=== PATIENT | female | born 1955 | race Caucasian/White ===

== ENCOUNTER 2016-07-26 10:52 | Emergency (ER) | payer BC ==
[~2016-07-26] VITALS: Wt 65.0 kg
[~2016-07-26 10:52] MED LIST: CALC1TAB80 PO; CHOL2000 PO; CIPR500T4 PO; METF500T4 PO; OXYC-281 PO; PHEN-538 PO
--- NOTE | 2016-07-26 14:31 | RADRPT ---
PROCEDURE: XR Left Shoulder. CLINICAL INDICATION: Left shoulder pain. TECHNIQUE: Two views. Frontal internal and scapular Y-view. COMPARISON: No prior study is available for comparison. FINDINGS: There is no fracture or dislocation. The soft tissues are normal. Articular surfaces are intact. There is no lytic or blastic lesion. There is no radiopaque foreign body. IMPRESSION: 1. Normal images of the left shoulder. RPTAT: QQ .Nahid Tubbs MD, MD Date Time Electronically viewed and signed by .Nahid Tubbs MD, on 07/26/2016 14:31 .R/
--- NOTE | 2016-07-26 14:33 | RADRPT ---
PROCEDURE: Left wrist radiographs. CLINICAL INDICATION: Trauma. Left wrist pain. TECHNIQUE: Four views. Frontal, lateral, and obliques. COMPARISON: No prior studies are available for comparison. FINDINGS: There is an acute transverse fracture through the distal metaphysis of the radius with a vertical fr acture also extending to the distal articular surface. There is approximately 2 mm step off at the articular surface. There is also an acute avulsion fracture of the ulnar styloid. There is no othe r fracture and there is no dislocation. There is overlying soft tissue swelling. The articular surfaces are otherwise intact. There are degenerative changes of the first carpal met acarpal joint with joint space narrowing, osteophytes, and subarticular sclerosis. There is no lytic or blastic lesion. There is no radiopaque foreign body. IMPRESSION: 1. Acute intra-articular fractures of the distal radius and ulna. 2. Degenerative change of the first carpal metacarpal joint. RPTAT: QQ .Nahid Tubbs MD, MD Date Time Electronically viewed and signed by .Nahid Tubbs MD, on 07/26/2016 14:33 .R/
--- NOTE | 2016-07-26 14:34 | RADRPT ---
PROCEDURE: XR left elbow. CLINICAL INDICATION: Left elbow pain. TECHNIQUE: 3 views. Frontal, lateral, and oblique. COMPARISON: No prior study is available for comparison. FINDINGS: There is no fracture or dislocation. The soft tissues are normal. Articular surfaces are intact. There is no lytic or blastic lesion. There is no radiopaque foreign body. IMPRESSION: 1. Unremarkable images of the left elbow. RPTAT: QQ .Nahid Tubbs MD, MD Date Time Electronically viewed and signed by .Nahid Tubbs MD, on 07/26/2016 14:34 .R/
--- NOTE | 2016-07-26 14:36 | RADRPT ---
PROCEDURE: XR Left Hand. CLINICAL INDICATION: Trauma due to a fall. Left hand pain. TECHNIQUE: Three views. Frontal lateral and oblique images of the left hand were obtained. COMPARISON: No prior studies are available for comparison. FINDINGS: There is an acute transverse fracture through the distal metaphysis of the radius with a vertical fr acture also extending to the distal articular surface. There is approximately 2 mm step off at the a rticular surface. There is also an acute avulsion fracture of the ulnar styloid. There is no other f racture and there is no dislocation. There is overlying soft tissue swelling. The articular surfaces are otherwise intact. There are degenerative changes of the first carpal meta carpal joint with joint space narrowing, osteophytes, and subarticular sclerosis. There is no lytic or blastic lesion. There is no radiopaque foreign body. IMPRESSION: 1. Acute intra-articular fractures of the distal radius and ulna. 2. Degenerative change of the first carpal metacarpal joint. 3. Otherwise unremarkable images of the left hand. RPTAT: QQ .Nahid Tubbs MD, Date Time Electronically viewed and signed by .Nahid Tubbs MD, on 07/26/2016 14:36 .R/
[2016-07-26] MEDS ORDERED: ULT50 PO (15:23)
[2016-07-26 15:37] VITALS: BP 132/78; PULSE 86; RESP 16; TEMP 98
--- NOTE | 2016-07-26 18:51 | ERD ---
ER Documentation Chief Complaint Date/Time DATE: 07/26/16 TIME: 18:47 Chief Complaint left arm and wrist pain from a fall. no obvious deformity noted HPI 61-year-old right-handed female with with a past medical history of diabetes presents to the ED complaining of a mechanical fall that occurred earlier today. States that her shoes were wet and she accidentally slipped and fell in the kitchen floor. States that she landed on her left arm. Reports that she has left shoulder, left wrist pain after the fall. Patient is unable to describe the pain. Denies any fever, chills, head or neck injuries. Denies any loss of consciousness. Denies any abdominal pain, chest pain, shortness of breath. ROS All systems reviewed and are negative except as per history of present illness. Medications Home Meds Active Scripts Tramadol HCl (Tramadol HCl) 50 Mg Tablet, 50 MG PO Q4 Y for PAIN, #[address] or operate heavy machinery while taking this medication Prov:JOSE PATEL PA-C 07/26/16 Phenazopyridine Hcl* (Pyridium*) 200 Mg Tab, 200 MG PO TID, #6 TAB Prov:TALIA PENALOZA MD 12/27/15 Phenazopyridine Hcl* (Pyridium*) 200 Mg Tab, 200 MG PO TID Y for URINARY PAIN, # 6 TAB Prov:TALIA PENALOZA MD 12/27/15 Ciprofloxacin Hcl* (Ciprofloxacin Hcl*) 500 Mg Tablet, 500 MG PO BID for 10 Days , TAB Prov:TALIA PENALOZA MD 12/27/15 Reported Medications Oxycodone Hcl-Acetaminophen* (Percocet*) 5-325 Mg Tablet, 1 TAB PO Q6 Y for SEVERE PAIN LEVEL 7-10, TAB 12/27/15 Calcium Carbonate/Vitamin D3 (Oysco 500+D Tablet) 1 Tab Tablet, 1 TAB PO BID, TAB 12/27/15 Metformin* (Glucophage*) 500 Mg Tab, 500 MG PO BID, #30 TAB 12/27/15 Cholecalciferol* (Vitamin D3*) 2,000 Unit Cap, 2000 UNIT PO DAILY, CAP 12/22/15 Allergies Allergies: Coded Allergies: NICOLAS Inhibitors (Verified Adverse Reaction, Unknown, 12/22/15) INTOLERANCE meloxicam (Verified Adverse Reaction, Unknown, 12/22/15) INTOLERANCE PMhx/Soc History of Surgery: Yes (KIDNEY STONES REMOVED) Anesthesia Reaction: No Hx Neurological Disorder: No Hx Respiratory Disorders: No Hx Cardiac Disorders: Yes (HYPERLIPIDEMIA) Hx Psychiatric Problems: No Hx Miscellaneous Medical Probl: Yes (DM) Hx Alcohol Use: No Hx Substance Use: No Hx Tobacco Use: No Smoking Status: Never smoker Physical Exam Vitals Vital Signs Date Time Temp Pulse Resp B/P Pulse Ox O2 Delivery O2 Flow Rate FiO2 07/26/16 15:37 98.0 86 16 132/78 100 Room Air 07/26/16 10:59 98.0 100 20 140/73 100 Physical Exam Const: Vuk-jim-pyssjgisr, well-nourished. In no acute distress. Head: Atraumatic, normocephalic Eyes: Normal Conjunctiva without injection ENT: Normal external ear, nose and mouth. Neck: Full range of motion. No meningismus. Resp: Clear to auscultation bilaterally. No wheezing, rhonchi, rales, or crackles. No accessory muscle use. No retractions. Cardio: Regular rate and rhythm, no murmurs Skin: No petechiae or rashes Back: No midline tenderness. No CVA tenderness. Ext: No cyanosis, or edema. Tenderness to palpation of the left distal radius and left distal ulna. Limited range of motion of the left wrist, elbow and shoulder due to pain. No snuffbox tenderness. Otherwise patient has full range of motion of the upper extremities. Pain with movements of her left shoulder. Cap refill less than 2 seconds. Distal pulses intact bilaterally. Neur: Awake and alert. Normal gait and coordination. Muscle strength 5/5. Sensation intact bilaterally. Psych: Normal Mood and Affect Procedures/MDM This is a 61-year-old female with a past medical history of diabetes that presents to the ED complaining of a mechanical fall due to her what she was in the kitchen floor. Patient is afebrile and nontoxic-appearing. Patient has normal vital signs. A left shoulder and left wrist x-ray was ordered to further evaluate patient. PROCEDURE: XR left elbow. CLINICAL INDICATION: Left elbow pain. TECHNIQUE: 3 views. Frontal, lateral, and oblique. COMPARISON: No prior study is available for comparison. FINDINGS: There is no fracture or dislocation. The soft tissues are normal. Articular surfaces are intact. There is no lytic or blastic lesion. There is no radiopaque foreign body. IMPRESSION: 1. Unremarkable images of the left elbow. PROCEDURE: XR Left Hand. CLINICAL INDICATION: Trauma due to a fall. Left hand pain. TECHNIQUE: Three views. Frontal lateral and oblique images of the left hand were obtained. COMPARISON: No prior studies are available for comparison. FINDINGS: There is an acute transverse fracture through the distal metaphysis of the radius with a vertical fracture also extending to the distal articular surface. There is approximately 2 mm step off at the articular surface. There is also an acute avulsion fracture of the ulnar styloid. There is no other fracture and there is no dislocation. There is overlying soft tissue swelling. The articular surfaces are otherwise intact. There are degenerative changes of the first carpal metacarpal joint with joint space narrowing, osteophytes, and subarticular sclerosis. There is no lytic or blastic lesion. There is no radiopaque foreign body. IMPRESSION: 1. Acute intra-articular fractures of the distal radius and ulna. 2. Degenerative change of the first carpal metacarpal joint. 3. Otherwise unremarkable images of the left hand. PROCEDURE: XR Left Shoulder. CLINICAL INDICATION: Left shoulder pain. TECHNIQUE: Two views. Frontal internal and scapular Y-view. COMPARISON: No prior study is available for comparison. FINDINGS: There is no fracture or dislocation. The soft tissues are normal. Articular surfaces are intact. There is no lytic or blastic lesion. There is no radiopaque foreign body. IMPRESSION: 1. Normal images of the left shoulder. PROCEDURE: Left wrist radiographs. CLINICAL INDICATION: Trauma. Left wrist pain. TECHNIQUE: Four views. Frontal, lateral, and obliques. COMPARISON: No prior studies are available for comparison. FINDINGS: There is an acute transverse fracture through the distal metaphysis of the radius with a vertical fracture also extending to the distal articular surface. There is approximately 2 mm step off at the articular surface. There is also an acute avulsion fracture of the ulnar styloid. There is no other fracture and there is no dislocation. There is overlying soft tissue swelling. The articular surfaces are otherwise intact. There are degenerative changes of the first carpal metacarpal joint with joint space narrowing, osteophytes, and subarticular sclerosis. There is no lytic or blastic lesion. There is no radiopaque foreign body. IMPRESSION: 1. Acute intra-articular fractures of the distal radius and ulna. 2. Degenerative change of the first carpal metacarpal joint. Patient is placed in a volar splint. Splint Assessment: Neurovascularly intact pre and post splint placement with good fit. Patient sustained an acute intra-articular fracture of the distal radius and ulna. Patient's extremity symptoms have stabilized while they have been evaluated in the department and are appropriate for outpatient follow up. No evidence of dislocations, compartment syndrome, neurologic injury, vascular injury, open joint, open fracture, tendon laceration, septic arthritis, osteomyelitis, DVT, foreign body, or other emergent conditions. Discharge medications: Tramadol Follow up with orthopedic physician in 1-2 days. Instructed patient to return to the ED sooner for any worsening symptoms. Patient's questions were answered. Patient understood and agreed with discharge plan. Patient discharged stable. Departure Diagnosis: Primary Impression: Wrist fracture Condition: Stable Patient Instructions: Fracture, Wrist [General] Referrals: COMMUNITY CLINICS YOU HAVE RECEIVED A MEDICAL SCREENING EXAM AND THE RESULTS INDICATE THAT YOU DO NOT HAVE A CONDITION THAT REQUIRES URGENT TREATMENT IN THE EMERGENCY DEPARTMENT. FURTHER EVALUATION AND TREATMENT OF YOUR CONDITION CAN WAIT UNTIL YOU ARE SEEN IN YOUR DOCTORS OFFICE WITHIN THE NEXT 1-2 DAYS. IT IS YOUR RESPONSIBILITY TO MAKE AN APPOINTMENT FOR [facility]. IF YOU HAVE A PRIMARY DOCTOR --you should call your primary doctor and schedule an appointment IF YOU DO NOT HAVE A PRIMARY DOCTOR YOU CAN CALL OUR PHYSICIAN REFERRAL HOTLINE AT IF YOU CAN NOT AFFORD TO SEE A PHYSICIAN YOU CAN CHOSE FROM THE FOLLOWING [facility]MER[facility] [address] [facility]. [facility] [address] [facility] [address] [facility] [address] [facility]. [facility] [address] [facility]. [facility]. [address] [facility] YOU HAVE RECEIVED A MEDICAL SCREENING EXAM AND THE RESULTS INDICATE THAT YOU DO NOT HAVE A CONDITION THAT REQUIRES URGENT TREATMENT IN THE EMERGENCY DEPARTMENT. FURTHER EVALUATION AND TREATMENT OF YOUR CONDITION CAN WAIT UNTIL YOU ARE SEEN IN YOUR DOCTORS OFFICE WITHIN THE NEXT 1-2 DAYS. IT IS YOUR RESPONSIBILITY TO MAKE AN APPOINTMENT FOR FOLOW-UP CARE. IF YOU HAVE A PRIMARY DOCTOR --you should call your primary doctor and schedule and appointment IF YOU DO NOT HAVE A PRIMARY DOCTOR YOU CAN CALL OUR PHYSICIAN REFERRAL HOTLINE AT . IF YOU CAN NOT AFFORD TO SEE A PHYSICIAN YOU CAN CHOSE FROM THE FOLLOWING [facility]: [facility] [address] [place] [address] [facility] [address] [place] [address] [facility] [address] [place] [address] [facility] 7 a.m.- 11 p.m. Every Day of the Week NO APPOINTMENT OR AUTHORIZATION NEEDED [facility] Hours: Mon-Fri 9:00 AM - 5:00 PM Additional Instructions: Seguimiento con mdico ortopdico dentro de 1-2 benavides para evaluacin adicional y tratamiento. Regrese a estas instalaciones si no se mejora padmini esperbamos o padmini le dijimos. JOSE PATEL PA-C Jul 26, 2016 18:51
== END 2016-07-26 15:39 | disposition home or self-care (01) ==
LOC: FTE 10:52
DX: S52.572A Other intraarticular fracture of lower end of left radius, initial encounter for closed fracture (principal); S52.692A Other fracture of lower end of left ulna, initial encounter for closed fracture; E11.9 Type 2 diabetes mellitus without complications; W01.0XXA Fall on same level from slipping, tripping and stumbling without subsequent striking against object, initial encounter; Y92.000 Kitchen of unspecified non-institutional (private) residence as the place of occurrence of the external cause; Z79.84 Long term (current) use of oral hypoglycemic drugs
CPT/HCPCS: 73030